=== PATIENT | male | born 1930 | race Caucasian/White ===

== ENCOUNTER → 2019-02-28 | Day surgery (SDC) | payer MEDICARE ==
[~2019-02-28] MED LIST: AMLODIPINE BESYL5 MG PO; ASPIRIN81 MG PO; ATORVASTATIN CA10 MG PO; B&O 60MG R/S 60 MG SUPP PR ONE; DEXAMETHASONE SOD PHOS INJ 4 MG/ML VIAL ONE; EPHEDRINE SULFATE INJ 50 MG/ML VIAL ONE; FENTANYL CITRATE/PF 100MCG/2 ML INJ ONE; FINASTERIDE5 MG PO; FLOMAX0.4 MG PO; FUROSEMIDE40 MG PO; IOPAMIDOL 300MG/ML 50ML INFUS..BTL IV ONE; LIDOCAINE HCL 2% LOCAL INJ 5 ML SDV VIAL INJ ONE; LOSARTAN POTAS100 MG PO; MAGNESIUM OXID400 MG PO; MELATONIN3 MG PO; METFORMIN HCL500 MG PO; METOPROLOL SUCC50 MG PO; NYSTATIN1 EAC3 TOP; ONDANSETRON HCL INJ 2MG/ML 2ML 2 MG/ML VIAL ONE; PIPERACILLIN/TAZOBAC 2.25 GM/SOD CHL 50 ML BAG IV ONE; PROPOFOL IV EMULSION 10 MG/ML 20 ML VIAL ONE; SENNA LAX8.6 MG PO; SEVOFLURANE INHAL SOLN 250 ML PEN BTL ONE; XARELTO10 MG PO
[2019-02-28 07:40] LABS: BASOPHILS # (AUTO) 0.1 (0.0-0.1); BASOPHILS % 0.8 % (0.0-1.0); EOSINOPHILS # (AUTO) 0.1 (0.0-0.4); EOSINOPHILS % 2.2 % (0.0-6.0); HEMATOCRIT 41.7 % (38.2-49.6); HEMOGLOBIN 13.6 g/dL (14.0-18.0); LYMPHOCYTES # (AUTO) 1.2 (1.0-3.2); MEAN CORPUSCULAR HEMOGLOBIN 30.7 pg (28-32); MEAN CORPUSCULAR HGB CONC 32.6 g/dL (31-35); MEAN CORPUSCULAR VOLUME 94.1 fL (81-99); MONOCYTES # (AUTO) 0.4 (0.2-0.8); MONOCYTES % 6.9 % (4.4-11.3); NEUTROPHILS # (AUTO) 4.6 (2.1-6.9); NEUTROPHILS % 71.8 % (38.7-80.0); PLATELET COUNT 191 x10e3/uL (140-360); RED BLOOD COUNT 4.43 x10e6/uL (4.3-5.7); RED CELL DISTRIBUTION WIDTH 13.3 % (11.7-14.4)
[2019-02-28 07:56] LABS: ANION GAP 12.9 mmol/L (8-16); BLOOD UREA NITROGEN 14 mg/dL (7-26); BUN/CREATININE RATIO 14 (6-25); CALCIUM 8.9 mg/dL (8.4-10.2); CARBON DIOXIDE 24 mmol/L (22-29); CHLORIDE 105 mmol/L (98-107); CREATININE, SERUM 1.02 mg/dL (0.72-1.25); EST GLOMERULAR FILTRATION RATE > 60 ML/MIN (60-); GLUCOSE 124 mg/dL (74-118); POTASSIUM 3.9 mmol/L (3.5-5.1); SODIUM 138 mmol/L (136-145)
--- NOTE | 2019-02-28 08:49 | Diagnostic Imaging Report ---
Chest, 1 view, 02/28/2019. History: Preop, cystoscopy. Comparison: None available. Findings: The cardiomediastinal silhouette and pulmonary vasculature are within normal limits for a portable exam. There is eventration of the right hemidiaphragm. There is no focal consolidation or pleural effusion. Left subclavian dual-lead pacer is present. There are no acute osseous or soft tissue abnormalities. Impression: No acute cardiopulmonary abnormality. Signed by: Yaya Ybarra on 02/28/2019 8:46 AM
--- NOTE | 2019-02-28 08:51 | Diagnostic Imaging Report ---
Abdomen, 1 view. History: Preop, left renal calculus. Findings: Left internal ureteral stent is present. A 1.3 cm stone is projected over the lower pole of the left kidney. Air is scattered throughout nondilated small and large bowel. Degenerative changes are present throughout the lumbar spine. IMPRESSION: Left renal calculus. Non-specific bowel gas pattern. Signed by: Yaya Ybarra on 02/28/2019 8:47 AM
[2019-02-28 10:35] VITALS: BP 135/64
--- OUTSIDE RECORDS SUMMARY | 2019-03-02 13:50 | XMS REPORT ---
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 Allergies, Adverse Reactions, Alerts This patient has no known allergies or adverse reactions. Medications This patient has no known medications. Results Test Description Test Time Test Comments Text Results Atomic Results Result Comments ABDOMEN-1VIEW (KUB) 2019-02-28 08:46:00 [place] [address] Patient Name: SUSANA MONTGOMERY MR #: [id number] : 1930 Age/Sex: 88/M Req #: [id number] Adm Physician: Ordered by: DIONNE SMITH MD Report #: [id number] Location: OR Room/Bed: Procedure: [id number] DX/ABDOMEN-1VIEW (KUB) Exam Date: Exam Time: REPORT STATUS: Signed Abdomen, 1 view. History: Preop, left renal calculus. Findings: Left internal ureteral stent is present. A 1.3 cm stone is projected over the lower pole of the left kidney. Air is scattered throughout nondilated small and large bowel. Degenerative changes are present throughout the lumbar spine. IMPRESSION: Left renal calculus. Non-specific bowel gas pattern. Signed by: Ernie Ybarra on 02/28/2019 8:47 AM Dictated By: ERNIE YBARRA MD 6 Transcribed By: SUSAN on 02/28/19846 COPY TO: DIONNE SMITH MD CHEST SINGLE (NOT PORTABLE) 2019-02-28 08:45:00 [place] [address] Patient Name: SUSANA MONTGOMERY MR #: [id number] : 1930 Age/Sex: 88/M Req #: [id number] Adm Physician: Ordered by: DIONNE SMITH MD Report #: [id number] Location: OR Room/Bed: Procedure: [id number] DX/CHEST SINGLE (NOT PORTABLE) Exam Date: Exam Time: REPORT STATUS: Signed Chest, 1 view, 02/28/2019. History: Preop, cystoscopy. Comparison: None available. Findings: The cardiomediastinal silhouette and pulmonary vasculature are within normal limits for a portable exam. There is eventration of the right hemidiaphragm. There is no focal consolidation or pleural effusion. Left subclavian dual-lead pacer is present. There are no acute osseous or soft tissue abnormalities. Impression: No acute cardiopulmonary abnormality. Signed by: Ernie Ybarra on 02/28/2019 8:46 AM Dictated By: ERNIE YBARRA MD 5 Transcribed By: SUSAN on 845 COPY TO: DIONNE SMITH MD
--- NOTE | 2019-04-18 00:30 | Operative Report ---
DATE OF PROCEDURE: 02/28/2019 SURGEON: Amadou Hinton MD PREOPERATIVE DIAGNOSES: 1. Left nephrolithiasis. 2. Left indwelling ureteral stent. POSTOPERATIVE DIAGNOSES: 1. Left nephrolithiasis. 2. Left indwelling ureteral stent. OPERATION PERFORMED: Note, these were all staged procedures as part of multi-staged and multi-step process in managing the patient's urolithiasis. 1. Cystourethroscopy with complicated removal of left indwelling ureteral stent (separate procedure performed for the diagnosis of stent on the separate scope). 2. Left ureteropyeloscopy with holmium laser lithotripsy and stone extraction and placement of stent (separate procedure performed for the diagnosis of the stone). 3. Radiological services for supervision and interpretation of ureteroscopy. 4. Interpretation of retrograde ureteropyelography. 5. Supervision of fluoroscopy, no radiologist present. ANESTHESIA: General. COMPLICATIONS: None. CLINICAL SUMMARY: Vernon Hurtado is an 88-year-old man with left nephrolithiasis. He is brought for the above procedures. He is aware of the risks of bleeding, infection, injury to adjacent structures, need for additional procedures and elected to proceed. OPERATIVE PROCEDURE IN DETAIL: Informed consent was verified. Vernon Hurtado was properly identified, taken to the operating room, placed on the cystoscopy table in supine position. Anesthesia was uneventfully begun. The patient was then carefully, gently repositioned in the dorsal lithotomy position with all pressure points well padded. His genitalia were prepared and draped in usual sterile fashion. The cystoscope sheath with the visual obturator in place was atraumatically inserted. The patient's urethra was guided unremarkable. Distal urethra through the normal sphincteric region through the prostate bed, which was significant for a very large prostate bed with trilobar prostatic hypertrophy with kissing lateral lobes are visually obstructing and ball-valving intravesical large median lobe and panendoscopy of the bladder revealed diffuse trabeculations and multiple bladder diverticula. A stent was noted to be emerging from the left ureteral orifice. A guidewire was then placed alongside the stent and guided to the level of the patient's kidney. The stent was then grasped, completely removed and discarded. A Semi-rigid ureteroscope was then placed with difficulty alongside the guidewire and guided to the level of the distal ureter. We injected contrast. There were no stones within the distal ureter. However, there was proximal to where we were working. There was severe ureteral tortuosity noted on retrograde pyelograms, a secondary guidewire was placed. Flexible ureteroscope was then placed over the secondary guidewire and guided to the level of the patient's kidney. Very hard stone was identified. It was manipulated into position and holmium laser lithotripsy was then carried out on this hard stone. Eventually, was fragmented into multiple smaller fragments. These are the largest of the smaller fragments were extracted. This was a very lengthy procedure. At the end of the case with cystoscopic fluoroscopic guidance, a left-sided indwelling ureteral stent was placed, it was coiled in the patient's kidneys as well as the patient's bladder, the retaining suture was cut short. The patient's bladder was drained. The cystoscope was withdrawn. Belladonna and opium suppository were placed revealing a 50 g prostate that is smooth, nonfluctuant without any nodules. The patient was then uneventfully reversed from anesthesia and taken to recovery room in stable condition. There were no complications to the procedure. He tolerated the procedure well. Plans will be to return the patient to the operating room for stent removal, left ureteroscopy and hopefully will render the patient stone free. At that same surgery, we will plan to perform an extensive transurethral resection of the prostate. The patient huge trilobar prostatic hypertrophy. Amadou Hinton MD [place]/KRIS[facility] /[id number]
== END | disposition home or self-care (01) ==
LOC: OR 06:01
PROVIDERS: ATTEND Urology
DX: N20.0 Calculus of kidney (principal); R31.29 Other microscopic hematuria; N39.0 Urinary tract infection, site not specified; N40.0 Benign prostatic hyperplasia without lower urinary tract symptoms; N21.0 Calculus in bladder; Z96.0 Presence of urogenital implants; E11.9 Type 2 diabetes mellitus without complications; F03.90 Unspecified dementia, unspecified severity, without behavioral disturbance, psychotic disturbance, mood disturbance, and anxiety; I10 Essential (primary) hypertension; Z95.0 Presence of cardiac pacemaker; I48.91 Unspecified atrial fibrillation; E78.5 Hyperlipidemia, unspecified; Z87.891 Personal history of nicotine dependence; Z01.812 Encounter for preprocedural laboratory examination; Z01.811 Encounter for preprocedural respiratory examination; Z79.84 Long term (current) use of oral hypoglycemic drugs
CPT/HCPCS: 36415; 52356; 71045; 74018; 74420; 80048; 82948; 85025; 88300; 93005; C1766; C2617; J1100; J2001; J2405; J2543; J2704; J3010; Q9967; C1769